=== PATIENT | female | born 1975 | race Caucasian/White ===

== ENCOUNTER 2017-05-10 18:06 | Emergency (ER) | payer OTHER ==
[~2017-05-10] VITALS: Ht 167.6 cm; Wt 54.4 kg
[2017-05-10 18:35] VITALS: BP 97/58
--- NOTE | 2017-05-10 19:03 | PHYS DOC ---
Past Medical History Past Medical History: Anxiety Past Surgical History: No Surgical History Alcohol Use: None Drug Use: None Adult General Chief Complaint Chief Complaint: LOWEREXTREMITY INJURY [facility] HPI Patient is a 42 year old female presents to the emergency department stating that last week she thinks it was when state that she is not sure she dropped a pallet on her right lower leg. She does have a reddened area on the [place]. She denies any numbness or tingling down to the lower extremity. Peripheral pulses are 2+ cap refill brisk less than 2 seconds. There is no drainage or discharge coming from the site. Patient is unsure when her last tetanus immunization occurred. Patient states she has been able to walk and ambulate on the foot with minimal discomfort. Review of Systems Review of Systems Constitutional: Denies fever or chills [] Eyes: Denies change in visual acuity, redness, or eye pain [] HENT: Denies nasal congestion or sore throat [] Respiratory: Denies cough or shortness of breath [] Cardiovascular: No additional information not addressed in HPI [] GI: Denies abdominal pain, nausea, vomiting, bloody stools or diarrhea [] : Denies dysuria or hematuria [] Musculoskeletal: Denies back pain or joint pain [] Integument: Denies rash or skin lesions. Patient with abrasion noted on the right lower kilpatrick area. Neurologic: Denies headache, focal weakness or sensory changes [] Endocrine: Denies polyuria or polydipsia [] Current Medications Current Medications Current Medications Medications (Trade) Dose Ordered Sig/Gregg Start Time Stop Time Status Last Admin Dose Admin Diphtheria/ Tetanus/Acell Pertussis (Boostrix) 0.5 ml ONCE ONCE 05/10/17 19:30 05/10/17 19:31 05/10/17 19:18 0.5 ML Allergies Allergies Allergies Coded Allergies Type Severity Reaction Last Updated Verified No Known Drug Allergies 05/10/17 No Physical Exam Physical Exam Constitutional: Well developed, well nourished, no acute distress, non-toxic appearance. [] HENT: Normocephalic, atraumatic, bilateral external ears normal, oropharynx moist, no oral exudates, nose normal. [] Eyes: PERRLA, EOMI, conjunctiva normal, no discharge. [] Neck: Normal range of motion, no tenderness, supple, no stridor. [] Cardiovascular:Heart rate regular rhythm, no murmur [] Lungs & Thorax: Bilateral breath sounds clear to auscultation [] Skin: Warm, dry, no erythema, no rash. Patient with an abrasion noted to the right lower kilpatrick area. Back: No tenderness Extremities: No tenderness, no cyanosis, no clubbing, ROM intact, no edema. Patient with swelling and redness noted to the right lower kilpatrick area. Peripheral pulses 2+ cap refill brisk less than 2 seconds. Neurologic: Alert and oriented X 3, normal motor function, normal sensory function, no focal deficits noted. [] Psychologic: Affect normal, judgement normal, mood normal. [] Current Patient Data Vital Signs Vital Signs Date Time Temp Pulse Resp B/P (MAP) Pulse Ox O2 Delivery O2 Flow Rate FiO2 05/10/17 18:35 98.5 73 18 98 Room Air 98.5 EKG EKG [] Radiology/Procedures Radiology/Procedures [] Course & Med Decision Making Course & Med Decision Making Pertinent Labs and Imaging studies reviewed. (See chart for details) X-rays were negative for any bony abnormalities. Patient will be discharged home in stable condition she'll be provided with Keflex for potential infection. Antibiotics will be placed over the area with recommendations ice packs elevation as much as possible Tylenol or ibuprofen for pain and discomfort. Signs and symptoms to return back to emergency department has been provided. Patient will be discharged home in stable condition with recommendations to follow-up the primary care physician as needed. Patient's questions have been answered at her bedside. [] Dragon Disclaimer Dragon Disclaimer This electronic medical record was generated, in whole or in part, using a voice recognition dictation system. Departure Departure Impression: Primary Impression: Contusion of right lower leg Disposition: HOME, SELF-CARE Condition: STABLE Referrals: MARIEL CASTANO M.D. (PCP) Patient Instructions: Contusion, [id number] Additional Instructions: Activity as tolerated. Keep the area clean and dry. Clean the site twice day with soap and water and apply antibiotic ointment. Kang wrap to the area to help with compression. Tylenol or ibuprofen for pain and discomfort. Antibiotics as prescribed. Follow-up to primary care physician as needed. Return back to emergency prior signs symptoms of become worse. Scripts Cephalexin (KEFLEX) 500 Mg Capsule 1 CAP PO BID, #20 CAP Prov: POLLY GREEN APRN 05/10/17 POLLY GREEN APRN May 10, 2017 19:03
[2017-05-10] MEDS ORDERED: CEPH-264 PO (19:23)
[2017-05-10] MEDS ORDERED: DIPHTH,PERTUSS(ACELL),TET TOX 0.5 ML DISP.SYRIN. VAX IM ONE (19:30)
[2017-05-10] MEDS ORDERED: NEOMY/BACITR/POLYMYXIN OINT PACKET. TP ONE (19:30)
--- NOTE | 2017-05-11 11:23 | RAD ---
AP and lateral right tibia and fibula radiographs May 10, 2017 Clinical history: Mid right tibial pain for one week. 2 AP and 2 lateral digital radiographs of the right tibia and fibula were obtained. No previous studies are available for comparison. No acute fracture or dislocation of the right tibia or fibula is seen. A benign-appearing oval-shaped lucency is seen involving the distal metaphysis of the right fibula. Impression: No acute osseous abnormality is seen.
== END 2017-05-10 19:28 | disposition home or self-care (01) ==
LOC: ER 18:06
DX: S80.11XA Contusion of right lower leg, initial encounter (principal); W20.8XXA Other cause of strike by thrown, projected or falling object, initial encounter; Y93.89 Activity, other specified; Y99.8 Other external cause status; Y92.89 Other specified places as the place of occurrence of the external cause
CPT/HCPCS: 73590; 90471; 90715; 99284-25